=== PATIENT | female | born 1975 | race Caucasian/White ===

== ENCOUNTER 2016-06-13 11:35 | Outpatient (CLI) | payer BC | END 2016-06-13 11:36 | LOC: HPCALD 11:35 | PROVIDERS: ATTEND Family Medicine | DX: R07.89 Other chest pain (principal) | CPT/HCPCS: 36415; 85379 ==

== ENCOUNTER 2016-06-13 15:34 | Outpatient (CLI) | payer BC ==
--- NOTE | 2016-06-13 18:38 | RAD ---
CHEST 2 VIEWS: Date: 06/13/16 Comparison is made with a 09/30/12 study. The heart is normal in size and the lungs are clear. No infiltrate or effusion seen. The trachea is midline. The bony structures appear normal. IMPRESSION: No acute thoracic finding. POS: HOME
== END 2016-06-13 15:35 | disposition home or self-care (01) ==
LOC: BURRAD 15:34
PROVIDERS: ATTEND Family Medicine
DX: R07.89 Other chest pain (principal)
CPT/HCPCS: 71020

== ENCOUNTER 2016-07-15 09:38 | Outpatient (CLI) | payer BC ==
[2016-07-15 10:00] LABS: #Basophils 0.1 thou/uL (0.0-0.2); #Eosinphils 0.1 thou/uL (0.0-0.7); #Lymphocytes 1.9 thou/uL (1.20-3.40); #Monocytes 0.5 thou/uL (0.11-0.59); #Neutrophils 3.3 thou/uL (1.40-6.50); %Basophils 1.2 % (0.0-1.0); %Lymphocytes 32.7 % (21.0-51.0); %Monocytes 7.7 % (0.0-10.0); %Neutrophils 56.5 % (42.0-75.0); Hemoglobin 14.7 g/dL (12.0-16.0); Mean Corpuscular HGB CONC 33.9 g/dL (32.0-36.0); Mean Corpuscular Hemoglobin 32.7 pg (27.0-31.0); Mean Corpuscular Volume 96.6 fl (81.0-99.0); Mean Platelet Volume 7.5 fL (7.4-10.4); Platelet Count 233 thou/uL (130-400); RBC Distribution Width 11.4 % (11.5-14.5); White Blood Cell (WBC) Count 5.8 thou/uL (4.8-10.8)
[2016-07-15 10:09] LABS: ALT (SGPT) 10 U/L (0-55); AST (SGOT) 14 U/L (5-34); Albumin 4.3 g/dL (3.5-5.0); Alkaline Phosphatase 55 U/L (40-150); Anion Gap 14 mmol/L (10-20); BUN (Urea Nitrogen) 14 mg/dL (7.0-18.7); Bilirubin, Total 0.4 mg/dL (0.2-1.2); Calc. Creatinine Clearance 0 mL/min (70-130); Calcium 9.1 mg/dL (7.8-10.44); Carbon Dioxide 26 mmol/L (22-29); Cardiac Risk 4.2 (Less than 4.5); Chloride 105 mmol/L (98-107); Cholesterol 242 mg/dL (< 200 Desired); Estimated GFR-MDRD 78; Globulin 2.4 g/dL (2.4-3.5); Glucose 83 mg/dL (70-105); HDL Cholesterol 58 mg/dL (>60 Neg Risk); LDL Cholesterol, Calculated 156 mg/dL; Potassium 3.7 mmol/L (3.5-5.1); Protein, Total 6.7 g/dL (6.0-8.3); Sodium 141 mmol/L (136-145); Triglycerides 140 mg/dL (Less than 150)
== END 2016-07-15 09:39 | disposition home or self-care (01) ==
LOC: HPCALD 09:38
PROVIDERS: ATTEND Family Medicine
DX: E78.00 Pure hypercholesterolemia, unspecified (principal)
CPT/HCPCS: 36415; 80053; 80061; 84443; 85025

== ENCOUNTER 2016-07-17 13:35 | Outpatient (CLI) | payer BC ==
--- NOTE | 2016-07-17 21:53 | CT ---
CT OF THE LUMBAR SPINE 07/17/[address] of the lumbar spine was performed for evaluation after a fall. Axial slices were acquired, then coronal and sagittal reconstructions were done. No focal disc herniation was seen at any level. The neural foramina are patent at all levels. No fra cture or dislocation was seen. A line seen in L5 to the right of midline appears to be developmental /trabecular in nature. I believe I can faintly seen it on a 2015 CT of the abdomen and pelvis. Addit ionally, there is a 9 to 10 mm rounded lucency in the right side of the L5 vertebral body. This can be seen on the [address] It has not changed in size or shape in the interval. It might be a small hemangioma, but with no meter changes records clerk time, I am not concerned about it. The visible paravertebral regions showed no acute change. There is an 8 mm area of thickening in the left adrenal gland that I do not definitely see on the 2015 CT. It could be the beginnings of a sma ll mass. The density does not seem much different than the remainder of the gland. It might be watch ed on future studies. IMPRESSION: 1. No acute bony findings. No evidence of a disc herniation as a cause for a radiculopathy. 2. 8 mm thickening in the left adrenal gland. Cannot exclude a very small mass as I do not see it with any certainty on the 2015 study. A six month followup might be reasonable. Code T POS: HOME
--- NOTE | 2016-07-17 21:57 | CT ---
CT CERVICAL SPINE 07/17/[address] of the cervical spine was compared with a prior CT dated 12/07/15. An anterior cervical fusion at C5-C6 is again noted. Synthetic discs have been placed at C5-C6 and C 6-C7 after discectomies. The disc space just above the C5-C6 fusion, the C4-C5 disc space, shows a s mall central disc protrusion. This was visible on the prior CT and confirmed by an MRI after that. I do not really see any evidence of obvious postoperative change at this level. No fracture or dislocation was seen in this patient. There is no sign of foraminal or central canal stenosis. IMPRESSION: 1. No acute traumatic findings to the neck. 2. Status post anterior cervical fusion of C5-C6 with synthetic discs placed at C5-C6 and C6-C7 . 3. Small central disc protrusion at C4-C5 that does not appear to cause significant impingement . It was present on the 2016 scan and really appears no different. POS: HOME
== END 2016-07-17 13:36 | disposition home or self-care (01) ==
LOC: BURCT 13:35
PROVIDERS: ATTEND Family Medicine
DX: M54.17 Radiculopathy, lumbosacral region (principal); R20.2 Paresthesia of skin; Z98.1 Arthrodesis status; W10.8XXA Fall (on) (from) other stairs and steps, initial encounter
CPT/HCPCS: 72125; 72131

== ENCOUNTER 2016-07-18 09:19 | Emergency (ER) | payer BC ==
[2016-07-18] MEDS ORDERED: Diazepam 10 MG/2 ML SYRINGE ONE ×2 (09:45→11:13)
[2016-07-18 10:16] LABS: BHCG - Serum NEGATIVE (NEGATIVE); Pregs Control Background? CLEAR/WHITE (CLR/WHITE); Pregs Control Bar Appear? YES (CONTROL BAR)
[2016-07-18 10:21] LABS: Anion Gap 13 mmol/L (10-20); BUN (Urea Nitrogen) 19 mg/dL (7.0-18.7); Calc. Creatinine Clearance 0 mL/min (70-130); Calcium 9.2 mg/dL (7.8-10.44); Carbon Dioxide 25 mmol/L (22-29); Chloride 106 mmol/L (98-107); Estimated GFR-MDRD 83; Glucose 109 mg/dL (70-105); Potassium 3.7 mmol/L (3.5-5.1); Sodium 140 mmol/L (136-145)
[2016-07-18] MEDS ORDERED: Meclizine HCl 25 MG TAB ONE (11:13)
[2016-07-18] MEDS ORDERED: Enoxaparin Sodium 30 MG/0.3 ML SYRINGE ONE (11:13)
[2016-07-18 11:55] LABS: Bilirubin Negative (Negative); Blood, Urine Trace (Negative); Clarity Clear (Clear); Glucose, Urine (Dipstick) Negative (Negative); Leukocyte Negative (Negative); Nitrite Negative (Negative); Protein, Urine (Dipstick) Negative (Neg-Trace); Urobilinogen 0.2 mg/dL (0.2-1.0)
[2016-07-18 11:56] LABS: Bacteria/HPF 1+ HPF (None Seen); RBC/HPF 0-3 HPF (0-3); WBC/HPF 0-3 HPF (0-3)
[2016-07-18 11:56] LABS: #Basophils 0.1 thou/uL (0.0-0.2); #Eosinphils 0.1 thou/uL (0.0-0.7); #Lymphocytes 1.2 thou/uL (1.20-3.40); #Monocytes 0.5 thou/uL (0.11-0.59); #Neutrophils 7.3 thou/uL (1.40-6.50); %Basophils 0.6 % (0.0-1.0); %Eosinophils 0.5 % (0.0-10.0); %Lymphocytes 12.9 % (21.0-51.0); %Monocytes 5.4 % (0.0-10.0); %Neutrophils 80.6 % (42.0-75.0); Hemoglobin 14.7 g/dL (12.0-16.0); Mean Corpuscular HGB CONC 33.6 g/dL (32.0-36.0); Mean Corpuscular Hemoglobin 32.3 pg (27.0-31.0); Mean Corpuscular Volume 96.1 fl (81.0-99.0); Mean Platelet Volume 7.3 fL (7.4-10.4); Platelet Count 194 thou/uL (130-400); RBC Distribution Width 11.6 % (11.5-14.5); Red Blood Cell (RBC) Count 4.53 mill/uL (4.20-5.40); White Blood Cell (WBC) Count 9.1 thou/uL (4.8-10.8)
--- NOTE | 2016-07-18 12:02 | CT ---
NONCONTRAST CT OF THE BRAIN: INDICATION: History of fall with head injury. COMPARISON: Prior exam dated 10/06/05. FINDINGS: Scalp and additional extracranial soft tissues appear within normal limits. The mastoid air cells a re clear. Paranasal sinuses are clear. Skull is intact. No acute infarct, hemorrhage, or hydrocephalus present. Septum pellucidum and third ventricle are m idline. IMPRESSION: No acute intracranial abnormality. POS: THA
--- NOTE | 2016-07-18 12:02 | RAD ---
RADIOGRAPH CHEST 1 VIEW: HISTORY: A 41-year-old female with nausea and emesis. FINDINGS: There are no air space densities, pulmonary edema, pneumothorax, or cardiomegaly. The lateral costo phrenic angles are sharp. IMPRESSION: No acute cardiopulmonary findings. heather [] POS: THA
[2016-07-18] MEDS ORDERED: Promethazine HCl 25 MG/ML VIAL ONE (12:18)
== END 2016-07-18 13:25 | disposition home or self-care (01) ==
LOC: BURERS 09:19
DX: H81.13 Benign paroxysmal vertigo, bilateral (principal); E78.5 Hyperlipidemia, unspecified; Z79.899 Other long term (current) drug therapy
CPT/HCPCS: 70450; 71010; 80048; 81003; 81015; 84703; 85025; 96361; 96365; 96375; 96376; J1650; J2550; J3360

== ENCOUNTER 2016-09-30 16:30 | Outpatient (CLI) | payer BC ==
--- NOTE | 2016-10-01 08:26 | RAD ---
CHEST TWO VIEWS 09/30/2016 Comparison is made with a 07/18 study. The heart is normal in size, and the lungs are clear. There are no convincing signs of pneumonia at the moment. The trachea is midline, and the mediastinum john ears unremarkable. A slight amount of increased density to the left of the left heart border on the PA film is not replicated on the lateral view, so I cannot confirm an infiltrate here at this momen t. If symptoms continue, it might be an area for a second look on a follow-up study. IMPRESSION: No acute findings. POS: HOME
== END 2016-09-30 16:31 | disposition home or self-care (01) ==
LOC: BURRAD 16:30
PROVIDERS: ATTEND Family Medicine
DX: R05 Cough (principal)
CPT/HCPCS: 71020

== ENCOUNTER 2016-10-13 13:22 | Outpatient (CLI) | payer BC ==
[2016-10-13 14:10] LABS: MONO NEGATIVE CONTROL ZONE White (Negative) (White); MONO POSITIVE CONTROL Pink Line (Positive) (PINK/RED); Mononucleosis NEGATIVE (NEGATIVE)
== END 2016-10-13 13:23 | disposition home or self-care (01) ==
LOC: HPCALD 13:22
PROVIDERS: ATTEND Family Medicine
DX: Z20.828 Contact with and (suspected) exposure to other viral communicable diseases (principal)
CPT/HCPCS: 36415; 86308

== ENCOUNTER 2016-10-24 11:56 | Outpatient (CLI) | payer BC ==
[2016-10-24 13:17] LABS: #Basophils 0.1 thou/uL (0.0-0.2); #Eosinphils 0.1 thou/uL (0.0-0.7); #Lymphocytes 1.7 thou/uL (1.20-3.40); #Monocytes 0.4 thou/uL (0.11-0.59); %Basophils 1.2 % (0.0-1.0); %Eosinophils 1.8 % (0.0-10.0); %Lymphocytes 32.9 % (21.0-51.0); %Monocytes 7.8 % (0.0-10.0); %Neutrophils 56.2 % (42.0-75.0); Hemoglobin 13.5 g/dL (12.0-16.0); Mean Corpuscular HGB CONC 33.6 g/dL (32.0-36.0); Mean Corpuscular Hemoglobin 30.9 pg (27.0-31.0); Mean Corpuscular Volume 91.9 fl (81.0-99.0); Mean Platelet Volume 7.2 fL (7.4-10.4); Platelet Count 234 thou/uL (130-400); RBC Distribution Width 11.4 % (11.5-14.5); Red Blood Cell (RBC) Count 4.37 mill/uL (4.20-5.40); White Blood Cell (WBC) Count 5.2 thou/uL (4.8-10.8)
[2016-10-24 13:40] LABS: Anion Gap 12 mmol/L (10-20); BUN (Urea Nitrogen) 12 mg/dL (7.0-18.7); Calc. Creatinine Clearance 0 mL/min (70-130); Calcium 9.1 mg/dL (7.8-10.44); Carbon Dioxide 27 mmol/L (22-29); Chloride 105 mmol/L (98-107); Estimated GFR-MDRD 75; Glucose 114 mg/dL (70-105); Potassium 4.2 mmol/L (3.5-5.1); Sodium 140 mmol/L (136-145)
== END 2016-10-24 11:57 | disposition home or self-care (01) ==
LOC: BURLAB 11:56
PROVIDERS: ATTEND Internal Medicine Cardiovascular Disease
DX: R00.2 Palpitations (principal)
CPT/HCPCS: 36415; 80048; 84443; 85025

== ENCOUNTER 2016-12-17 12:03 | Outpatient (CLI) | payer BC ==
--- NOTE | 2016-12-18 07:36 | ULT ---
NONVASCULAR ULTRASOUND OF THE LEFT KNEE 12/17/16 Ultrasonography of the popliteal fossa was performed for evaluation of a possible Mendoza's cyst. Ther e were no cystic structures here or other abnormality seen. IMPRESSION: No significant finding. POS: HOME
== END 2016-12-17 12:04 | disposition home or self-care (01) ==
LOC: BURULT 12:03
PROVIDERS: ATTEND Family Medicine
DX: M25.562 Pain in left knee (principal)
CPT/HCPCS: 76882

== ENCOUNTER 2016-12-19 12:07 | Outpatient (CLI) | payer BC ==
--- NOTE | 2016-12-19 19:21 | RAD ---
LEFT KNEE FOUR VIEWS: 12/19/16 No fracture, dislocation, or joint space narrowing was seen. No joint effusion was indicated. All sabra aniket appear normal. IMPRESSION: No significant findings. POS: HOME
== END 2016-12-19 12:08 | disposition home or self-care (01) ==
LOC: BURRAD 12:07
PROVIDERS: ATTEND Family Medicine
DX: M25.562 Pain in left knee (principal)

== ENCOUNTER 2017-01-07 07:10 | Outpatient (CLI) | payer BC ==
--- NOTE | 2017-01-07 18:32 | CT ---
CT ABDOMEN AND PELVIS WITH AND WITHOUT CONTRAST AND REGIONAL RECONSTRUCTIONS 01/07/[address] of the abdomen was done for evaluation of a presumed adrenal mass seen on a CT lumbar stud y. Axial slices were acquired without IV contrast initially. Delayed CT images were then obtained at 60 seconds and 10 minutes. Coronal reconstructions were also done. There is a small 10 mm mass see in the left adrenal gland that is fairly comparable in size to the p rior measurement of 8 mm. The precontrast density was measured at 8 to 10 units. The density at 60 s econds was 91 units and at 10 minutes 48 units. The absolute washout was computed at about 52% and r elative washout of 47%. See comments below. The lung bases are clear. No infiltrate or effusion was seen. The liver, spleen, pancreas, kidneys a nd abdominal aorta were unremarkable. There has been a prior cholecystectomy. The bowel was nondistended and showed no sign of inflammatory change or wall thickening. No free air or free fluid was noted. No significant bony abnormalities were seen. 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 The initial noncontrast measurements of 8 to 10 units is strongly suggestive of an adenoma. A relati ve washout greater than 40% is also suggestive of adenoma. The absolute washout numbers were indeter minate (less than 60% is considered indeterminate). Those percentages are based upon a 15 minute wa shout and this patient had a 10 minute. Overall, given little change in the appearance of the mass s olvin last July, its low CT numbers and greater than 40% relative washout numbers all mitigate stron gly towards this being an adenoma. While I believe one could justify doing nothing further, if one wanted to be on the safe side, I wou ld do one more scan 12 months from now, at most. That could be done noncontrast initially and if the re were no changes in the appearance, then a washout scan could be obviated. POS: HOME
== END 2017-01-07 07:11 | disposition home or self-care (01) ==
LOC: BURCT 07:10
PROVIDERS: ATTEND Family Medicine
DX: E27.9 Disorder of adrenal gland, unspecified (principal)
CPT/HCPCS: 74170

== ENCOUNTER 2017-02-23 09:41 | Outpatient (CLI) | payer BC ==
--- NOTE | 2017-02-23 18:47 | RAD ---
CHEST TWO VIEWS: Date: 02-23-17 Comparison: 09-30-16 FINDINGS: The heart is normal in size and the lungs are clear. No infiltrate or effusion was seen. There is no evidence of pneumonia currently. The bony structures are unremarkable. IMPRESSION: No acute thoracic finding. POS: HOME
== END 2017-02-23 09:42 | disposition home or self-care (01) ==
LOC: BURRAD 09:41
PROVIDERS: ATTEND Family Medicine
DX: J40 Bronchitis, not specified as acute or chronic (principal)
CPT/HCPCS: 71020

== ENCOUNTER 2017-05-14 17:12 | Outpatient (CLI) | payer BC ==
--- NOTE | 2017-05-14 22:05 | RAD ---
RIGHT FOOT THREE VIEWS: 05/14/17 No fracture, dislocation, or joint abnormality was seen. The great toe appears normal. There is no pe riosteal reaction. IMPRESSION: No acute finding. POS: HOME
== END 2017-05-14 17:13 | disposition home or self-care (01) ==
LOC: BURRAD 17:12
PROVIDERS: ATTEND Family Medicine
DX: M79.671 Pain in right foot (principal)

== ENCOUNTER 2017-10-06 14:34 | Outpatient (CLI) | payer BC ==
--- NOTE | 2017-10-06 15:36 | RAD ---
CHEST 1 VIEW ABDOMEN 2 VIEWS: HISTORY: Chest and abdomen pain. FINDINGS: Cardiac silhouette and pulmonary vasculature are unremarkable. Mediastinum is midline. No confluent airspace consolidation or evidence of free subdiaphragmatic gas. A large amount of stool is apparent throughout the colon. No differential air fluid levels or eviden ce of free intraperitoneal gas. Metallic clips overlie the gallbladder fossa. Phleboliths project o trisha the pelvis. IMPRESSION: 1. Constipation. 2. Status post cholecystectomy. Findings were called to Dr. Hanna at 1448 hours. CODE CR POS: [facility]
== END 2017-10-06 14:35 | disposition home or self-care (01) ==
LOC: BURRAD 14:34
PROVIDERS: ATTEND Family Medicine
DX: R10.33 Periumbilical pain (principal); K59.00 Constipation, unspecified; Z90.49 Acquired absence of other specified parts of digestive tract
CPT/HCPCS: 74022

== ENCOUNTER 2018-01-13 12:11 | Outpatient (CLI) | payer BC ==
--- NOTE | 2018-01-13 22:50 | CT ---
CT ABDOMEN WITHOUT CONTRAST: 01/13/2018 HISTORY/COMPARISON: The exam was done as a followup to a left adrenal nodule. Prior CT, dated 01/07/2017. I also reviewed a much older CT of the abdomen, from 06/24/2012. The ex am was done as a followup to a left renal nodule. The prior scan showed fairly firm findings, consis tent with an adenoma. TECHNIQUE: Today's scan was done without IV contrast, initially, to see if there had been any loom changer time. As there had been done, it was opted to not continue with the contrast scan. FINDINGS: Again noted is a small, 1 cm left adrenal nodule. It has not changed in size since 2013. The noncon trast CT numbers vary a bit but are generally in the 8 to low 20s range. The characteristics on the prior adrenal wash-out scan were all favorable. If anything, the size of the nodule may be slightly less than it was in 2013. The remainder of the scan was unremarkable. The liver, spleen, pancreas, kidneys, and abdominal aort a were unremarkable. The visible bowel appeared normal. The lung bases were clear. IMPRESSION: Stable 1 cm left adrenal nodule that has not changed, not only since the 2017 scan, but has certainly not grown since 2013. Given the results of the prior scan and this lack of growth over a 5 year per iod of time, I feel further followup is not necessary. POS: HOME
== END 2018-01-13 12:12 | disposition home or self-care (01) ==
LOC: BURCT 12:11
PROVIDERS: ATTEND Family Medicine
DX: E27.9 Disorder of adrenal gland, unspecified (principal)
CPT/HCPCS: 74150

== ENCOUNTER 2019-01-04 09:00 | Observation (INO) | payer BC ==
[2019-01-04 09:59] LABS: ALT (SGPT) 17 U/L (8-55); AST (SGOT) 20 U/L (5-34); Alkaline Phosphatase 90 U/L (40-110); Anion Gap 14 mmol/L (10-20); BUN (Urea Nitrogen) 9 mg/dL (7.0-18.7); Bilirubin, Total 0.3 mg/dL (0.2-1.2); Calc. Creatinine Clearance 0 mL/min (70-130); Carbon Dioxide 25 mmol/L (22-29); Chloride 103 mmol/L (98-107); Estimated GFR-MDRD 79; Globulin 2.9 g/dL (2.4-3.5); Glucose 102 mg/dL (70-105); Potassium 3.9 mmol/L (3.5-5.1); Protein, Total 6.9 g/dL (6.0-8.3); Sodium 138 mmol/L (136-145)
[2019-01-04] MEDS ORDERED: Sodium Chloride 0.9% 1,000 ML IV SCH (10:00)
[2019-01-04 10:02] LABS: Hemoglobin 13.1 g/dL (12.0-16.0); Mean Corpuscular HGB CONC 33.6 g/dL (32.0-36.0); Mean Corpuscular Hemoglobin 30.8 pg (27.0-31.0); Mean Corpuscular Volume 91.7 fL (78.0-98.0); Mean Platelet Volume 6.8 fL (7.4-10.4); Platelet Count 177 thou/uL (130-400); RBC Distribution Width 11.2 % (11.5-14.5); Red Blood Cell (RBC) Count 4.27 mill/uL (4.20-5.40)
[2019-01-04 10:17] VITALS: BMI 26.7
[2019-01-04 10:27] LABS: Band 1 % (5-11); Eosinophils 2 % (0-10); Lymphocytes 26 % (21-51); MDiff Complete? YES; Monocytes 6 % (0-10); Neutrophil 65 % (42-75); Platelet Morphology Comment Appears Adequate; RBC Morphology Normal
[2019-01-04 10:35] LABS: Bilirubin Negative (Negative); Blood, Urine Negative (Negative); Clarity Clear (Clear); Glucose, Urine (Dipstick) Negative (Negative); Leukocyte Negative (Negative); Nitrite Negative (Negative); Protein, Urine (Dipstick) Negative (Neg-Trace); Urobilinogen 0.2 mg/dL (Less than 2)
[2019-01-04 10:44] LABS: RBC/HPF 0-3 HPF (0-3); Squamous Epithelial 0-3 HPF (0-3); WBC/HPF 0-3 HPF (0-3)
[2019-01-04 10:45] LABS: Bacteria/HPF 2+ HPF (None Seen); Epithelial Cast None Seen LPF (None Seen)
[2019-01-04] MEDS: Morphine 4 MG/ML VIAL IV PRN ×4 (10:54→22:10)
[2019-01-04] MEDS ORDERED: XOFLUZA 40 MG PO SCH (11:00)
[2019-01-04] MEDS: Acetaminophen 325 MG TAB PO PRN ×3 (11:52→22:15)
[2019-01-04] MEDS ORDERED: Morphine 2 MG/ML SYRINGE ONE (12:11)
[2019-01-04] MEDS ORDERED: Morphine 4 MG/ML VIAL SLOW IVP SCH (12:15)
[2019-01-04] MEDS ORDERED: Ketorolac Tromethamine 30 MG/ML VIAL ONE ×2 (13:57→23:26)
[2019-01-04] MEDS: Ketorolac Tromethamine 30 MG/ML VIAL IVP PRN ×2 (14:04→23:33)
[2019-01-04] MEDS: Sodium Chloride 0.9% 1,000 ML IV SCH (18:07)
[2019-01-04] MEDS ORDERED: Primidone 50 MG TAB PO SCH (22:45)
[2019-01-04] MEDS ORDERED: Gabapentin 300 MG CAP PO SCH (22:45)
[2019-01-04] MEDS ORDERED: tiZANidine HCl 4 MG TAB PO SCH (22:45)
[2019-01-04] MEDS ORDERED: Estradiol 1 MG TAB PO SCH (22:45)
[2019-01-05] MEDS: Sodium Chloride 0.9% 1,000 ML IV SCH ×3 (01:58→18:42)
[2019-01-05] MEDS ORDERED: FLU VACC QS2019-20(6MOS UP)/PF 60 MCG/0.5 ML SYRINGE IM ONE (09:00)
[2019-01-05] MEDS: Acetaminophen 325 MG TAB PO PRN ×2 (10:10→17:00)
[2019-01-05] MEDS: Primidone 50 MG TAB PO SCH ×2 (10:11→20:38)
[2019-01-05] MEDS: Desvenlafaxine Succinate [Pristiq] 100 MG PO SCH (10:12)
[2019-01-05] MEDS ORDERED: Ketorolac Tromethamine 30 MG/ML VIAL ONE ×2 (10:25→17:05)
[2019-01-05] MEDS: Ketorolac Tromethamine 30 MG/ML VIAL IVP PRN ×2 (10:28→17:07)
[2019-01-05] MEDS ORDERED: Morphine 4 MG/ML VIAL SLOW IVP PRN (12:54)
[2019-01-05] MEDS ORDERED: HYDROcodone/Acetaminophen 10/325 mg Tablet PO PRN (12:54)
[2019-01-05] MEDS ORDERED: Milk Of Magnesia 30 ML UDCUP PO PRN (13:09)
[2019-01-05] MEDS ORDERED: Bisacodyl 10 MG SUPP PR PRN (13:09)
[2019-01-05 13:24] LABS: Anion Gap 11 mmol/L (10-20); BUN (Urea Nitrogen) 6 mg/dL (7.0-18.7); Calc. Creatinine Clearance 142 mL/min (70-130); Calcium 8.6 mg/dL (7.8-10.44); Carbon Dioxide 26 mmol/L (22-29); Chloride 107 mmol/L (98-107); Estimated GFR-MDRD Greater than 90; Glucose 121 mg/dL (70-105); Potassium 3.6 mmol/L (3.5-5.1); Sodium 140 mmol/L (136-145)
[2019-01-05] MEDS: Ondansetron ODT 4 MG TAB PO PRN (13:24)
[2019-01-05 13:31] LABS: Band 17 % (5-11); Hemoglobin 11.8 g/dL (12.0-16.0); Lymphocytes 17 % (21-51); MDiff Complete? YES; Mean Corpuscular HGB CONC 32.4 g/dL (32.0-36.0); Mean Corpuscular Volume 92.4 fL (78.0-98.0); Mean Platelet Volume 6.6 fL (7.4-10.4); Monocytes 4 % (0-10); Neutrophil 60 % (42-75); Platelet Count 176 thou/uL (130-400); RBC Distribution Width 11.1 % (11.5-14.5); Reactive Lymphocytes 2 % (0-10); Red Blood Cell (RBC) Count 3.93 mill/uL (4.20-5.40); White Blood Cell (WBC) Count 4.4 thou/uL (4.8-10.8)
--- NOTE | 2019-01-05 17:28 | RAD ---
CHEST TWO VIEWS: 01/05/19 Comparison is made with the 10/06/17 study. The heart is normal in size and the lungs are clear. There is no current sign of pneumonia. There is no real adverse change compared to the prior study. IMPRESSION: No acute finding. POS: HOME
[2019-01-05] MEDS: Oseltamivir 75 MG CAP PO SCH (20:38)
[2019-01-05] MEDS: Docusate 100 MG CAP PO SCH (20:39)
[2019-01-05] MEDS ORDERED: tiZANidine HCl 4 MG TAB PO SCH (21:00)
[2019-01-05] MEDS ORDERED: Gabapentin 300 MG CAP PO SCH (21:00)
[2019-01-05] MEDS ORDERED: Estradiol 1 MG TAB PO SCH (21:00)
[2019-01-06] MEDS: Sodium Chloride 0.9% 1,000 ML IV SCH (02:39)
[2019-01-06] MEDS: Acetaminophen 325 MG TAB PO PRN (05:25)
[2019-01-06] MEDS: Ondansetron ODT 4 MG TAB PO PRN (07:33)
[2019-01-06] MEDS: Docusate 100 MG CAP PO SCH (08:38)
[2019-01-06] MEDS: Primidone 50 MG TAB PO SCH (08:38)
[2019-01-06] MEDS: Desvenlafaxine Succinate [Pristiq] 100 MG PO SCH (08:38)
[2019-01-06] MEDS: Oseltamivir 75 MG CAP PO SCH (08:39)
[2019-01-06 13:22] VITALS: BP 125/74; TEMP 98.9
== END 2019-01-06 14:20 | disposition home or self-care (01) ==
LOC: BURMED 09:00
PROVIDERS: ADMIT Family Medicine; ATTEND Family Medicine
DX: J11.1 Influenza due to unidentified influenza virus with other respiratory manifestations (principal); E86.0 Dehydration; M54.9 Dorsalgia, unspecified; Z88.8 Allergy status to other drugs, medicaments and biological substances; Z91.048 Other nonmedicinal substance allergy status
CPT/HCPCS: 36415; 71046; 80048; 80053; 81001; 85025; 87040; 87086; 96361; 96374; 96375; 96376; G0378; J1885; J2270; Q0162

== ENCOUNTER 2019-01-24 09:10 | Outpatient (CLI) | payer BC ==
--- NOTE | 2019-01-24 14:49 | RAD ---
CHEST 2 VIEWS: Date: 01/24/19 Comparison is made with the prior study of 01/05/19. There has been no adverse interval change. The heart remains normal in size and the lungs are clear. There is no sign of pneumonia or other infiltrate. There are no effusions. The vessels are not conges anastacio. IMPRESSION: Stable exam showing no acute findings. POS: HOME
== END 2019-01-24 09:11 | disposition home or self-care (01) ==
LOC: BURRAD 09:10
PROVIDERS: ATTEND Nurse Practitioner Family
DX: R05 Cough (principal)
CPT/HCPCS: 71046

== ENCOUNTER 2019-06-20 11:27 | Outpatient (CLI) | payer BC ==
--- NOTE | 2019-06-20 12:03 | RAD ---
Sacrum/coccyx 2 views HISTORY: Fall. Injury. FINDINGS: Sacral alae are intact. Sacroiliac joints with minimal osteophytosis. No acute fracture or dislocation evident. IMPRESSION: No abnormalities are demonstrated.
== END 2019-06-20 11:28 | disposition home or self-care (01) ==
LOC: BURRAD 11:27
PROVIDERS: ATTEND Family Medicine
DX: M53.3 Sacrococcygeal disorders, not elsewhere classified (principal)
CPT/HCPCS: 72220

== ENCOUNTER 2020-06-01 10:44 | Emergency (ER) | payer BC ==
--- NOTE | 2020-06-01 11:35 | CT ---
CT of abdomen and pelvis: 06/01/2020 COMPARISON: None HISTORY: Right-sided flank pain TECHNIQUE: Axial CT imaging at 5 mm intervals from lung bases through pubic symphysis without contras t. Coronal reformatted imaging obtained. FINDINGS: Lack of contrast media limits assessment of the viscera, bowel, vascular structures, and fo r lymphadenopathy. The imaged lung bases are unremarkable. Cholecystectomy clips are present. No free intraperitoneal ai r. Limited assessment of the liver, spleen, pancreas, and adrenal glands appears unremarkable. There is no nephrolithiasis or hydronephrosis/hydroureter on either side. Calcifications are seen along the course of bilateral ureters distally but there is no evidence for o bstructive uropathy to suggest a definite stone within either ureter. Thus, the calcifications seen along the course of bilateral ureters are favored to be vascular in nature. Limited evaluation of the bowel demonstrates no acute findings. Review of the osseous structures demonstrates no worrisome lytic or blastic bone lesions. IMPRESSION: No nephrolithiasis or evidence of obstructive uropathy.
[2020-06-01] MEDS ORDERED: Dicyclomine 20 MG TAB ONE (12:37)
[2020-06-01] MEDS ORDERED: Ciprofloxacin 500 MG TAB ONE (12:37)
== END 2020-06-01 12:41 | disposition home or self-care (01) ==
LOC: BURERS 10:44
DX: R10.9 Unspecified abdominal pain (principal); E78.5 Hyperlipidemia, unspecified; Z79.899 Other long term (current) drug therapy
CPT/HCPCS: 74176

== ENCOUNTER 2022-10-13 16:11 | Emergency (ER) | payer BC ==
[~2022-10-13 16:11] MED LIST: Iopamidol 370 76% 100 ML VIAL ONE
[2022-10-13] MEDS ORDERED: Morphine 4 MG/ML VIAL ONE (16:26)
[2022-10-13] MEDS ORDERED: Ondansetron PF 4 MG/2 ML Vial ONE (16:26)
[2022-10-13] MEDS ORDERED: Pantoprazole 40 MG VIAL ONE (16:26)
[2022-10-13 16:30] LABS: #Eosinphils 0.1 thou/uL (0.0-0.7); #Lymphocytes 1.7 thou/uL (1.20-3.40); #Monocytes 0.5 thou/uL (0.11-0.59); %Basophils 0.8 % (0.0-1.0); %Eosinophils 1.2 % (0.0-10.0); %Lymphocytes 32.3 % (21.0-51.0); %Monocytes 8.6 % (0.0-10.0); %Neutrophils 57.1 % (42.0-75.0); Hemoglobin 14.7 g/dL (12.0-16.0); Mean Corpuscular HGB CONC 34.1 g/dL (32.0-36.0); Mean Corpuscular Hemoglobin 32.5 pg (27.0-31.0); Mean Corpuscular Volume 95.4 fl (78.0-98.0); Mean Platelet Volume 7.1 fL (7.4-10.4); Platelet Count 241 10x3/uL (130-400); RBC Distribution Width 11.6 % (11.5-14.5); Red Blood Cell (RBC) Count 4.53 mill/uL (4.20-5.40); White Blood Cell (WBC) Count 5.3 10x3/uL (4.8-10.8)
[2022-10-13 16:49] LABS: ALT (SGPT) 15 U/L (8-55); AST (SGOT) 17 U/L (5-34); Albumin 4.3 g/dL (3.5-5.0); Alkaline Phosphatase 68 U/L (40-110); Anion Gap 15 mmol/L (10-20); BUN (Urea Nitrogen) 11 mg/dL (7.0-18.7); Bilirubin, Total 0.2 mg/dL (0.2-1.2); Calc. Creatinine Clearance 0 mL/min (70-130); Calcium 8.8 mg/dL (7.8-10.44); Carbon Dioxide 26 mmol/L (22-29); Chloride 102 mmol/L (98-107); Estimated GFR 93; Globulin 2.7 g/dL (2.4-3.5); Glucose 101 mg/dL (70-105); Lipase 57 U/L (8-78); Potassium 3.9 mmol/L (3.5-5.1); Sodium 139 mmol/L (136-145)
[2022-10-13] MEDS ORDERED: Lidocaine Viscous Sol 2% 15 ml UD Cup ONE (17:25)
[2022-10-13] MEDS ORDERED: Ketorolac Tromethamine 30 MG/ML VIAL ONE (17:25)
[2022-10-13] MEDS ORDERED: Mag-Al Plus 1200 MG/1200 MG/120 MG/30 ML UDCUP ONE (17:25)
[2022-10-13] MEDS ORDERED: Morphine 10 MG/ML VIAL ONE (18:26)
[2022-10-13] MEDS ORDERED: HYDROmorphone 0.5 MG/0.5 ML SYRINGE ONE (19:18)
== END 2022-10-13 20:58 | disposition home or self-care (01) ==
LOC: BURERS 16:11
DX: R07.9 Chest pain, unspecified (principal); E78.5 Hyperlipidemia, unspecified; Z79.899 Other long term (current) drug therapy
CPT/HCPCS: 36415; 71046; 71275; 80053; 83690; 84484; 85025; 85379; 93005; 96374; 96375; 96376; C9113; J1170; J1885; J2270; J2405; Q9967

== ENCOUNTER 2023-01-17 22:19 | Emergency (ER) | payer BC ==
[2023-01-17] MEDS ORDERED: Promethazine HCl 25 MG/ML VIAL ONE (22:56)
[2023-01-17 23:16] LABS: Hematocrit 45.4 % (36.0-47.0); Hemoglobin 15.4 g/dL (12.0-16.0); Mean Corpuscular HGB CONC 33.8 g/dL (32.0-36.0); Mean Corpuscular Hemoglobin 33.2 pg (27.0-31.0); Mean Corpuscular Volume 98.1 fl (78.0-98.0); Mean Platelet Volume 7.6 fL (7.4-10.4); Platelet Count 224 10x3/uL (130-400); RBC Distribution Width 11.4 % (11.5-14.5); Red Blood Cell (RBC) Count 4.63 mill/uL (4.20-5.40); White Blood Cell (WBC) Count 9.5 10x3/uL (4.8-10.8)
[2023-01-17 23:19] LABS: ALT (SGPT) 14 U/L (8-55); AST (SGOT) 18 U/L (5-34); Albumin 4.2 g/dL (3.5-5.0); Alkaline Phosphatase 76 U/L (40-110); Anion Gap 18 mmol/L (10-20); BUN (Urea Nitrogen) 13 mg/dL (7.0-18.7); Bilirubin, Total 0.4 mg/dL (0.2-1.2); Calc. Creatinine Clearance 0 mL/min (70-130); Calcium 8.8 mg/dL (7.8-10.44); Carbon Dioxide 25 mmol/L (22-29); Chloride 100 mmol/L (98-107); Estimated GFR 96; Globulin 2.8 g/dL (2.4-3.5); Glucose 111 mg/dL (70-105); Lipase 9 U/L (8-78); Potassium 3.7 mmol/L (3.5-5.1); Sodium 139 mmol/L (136-145)
[2023-01-18 00:43] LABS: Bilirubin Negative (Negative); Blood, Urine Negative (Negative); Clarity Clear (Clear); Glucose, Urine (Dipstick) Negative (Negative); Ketone, Urine 15 mg/dL (Negative); Leukocyte Negative (Negative); Nitrite Negative (Negative); Protein, Urine (Dipstick) Trace mg/dL (Neg-Trace); Urobilinogen 0.2 mg/dL (Less than 2); pH, Urine 5.5 (5.0-9.0)
[2023-01-18 00:47] LABS: Bacteria/HPF Rare-Few HPF (None Seen); CAUTI Indications for Culture Fever or rigors; RBC/HPF None Seen HPF (0-3); Specific Gravity, Urine Greater/Equal 1.030 (1.005-1.030); Urine Culture Reflex No No; WBC/HPF None Seen HPF (0-3)
[2023-01-18 05:35] LABS: Lymphocytes 19 % (21-51); MDiff Complete? YES; Monocytes 5 % (0-10); Neutrophil 75 % (42-75)
== END 2023-01-18 00:55 | disposition home or self-care (01) ==
LOC: BURERS 22:19
DX: R11.2 Nausea with vomiting, unspecified (principal); E78.5 Hyperlipidemia, unspecified; Z79.899 Other long term (current) drug therapy
CPT/HCPCS: 80053; 81001; 83690; 85025; 96374; J2550

== ENCOUNTER 2024-12-11 15:18 | Emergency (ER) | payer BC, OTHER | END 2024-12-11 15:44 | disposition home or self-care (01) | LOC: BURERS 15:18 | DX: J06.9 Acute upper respiratory infection, unspecified (principal); E78.5 Hyperlipidemia, unspecified; Z79.899 Other long term (current) drug therapy | CPT/HCPCS: 99283 ==